=== PATIENT | female | born 1960 | race Caucasian/White ===

== ENCOUNTER 2020-07-09 15:27 | Emergency (ER) | payer MEDICAID ==
[~2020-07-09] VITALS: Ht 157.5 cm; Wt 74.0 kg
[2020-07-09 17:45] VITALS: BP 110/62
== END 2020-07-09 17:45 | disposition home or self-care (01) ==
LOC: ER 15:27
DX: R53.1 Weakness (principal); Z20.828 Contact with and (suspected) exposure to other viral communicable diseases; R43.9 Unspecified disturbances of smell and taste; E11.9 Type 2 diabetes mellitus without complications; I10 Essential (primary) hypertension; F17.200 Nicotine dependence, unspecified, uncomplicated
CPT/HCPCS: 99281; C9803; U0003